=== PATIENT | male | born 1945 | race Caucasian/White ===

== ENCOUNTER 2019-09-10 14:31 | Observation (INO) | payer MEDICARE, OTHER ==
[~2019-09-10] VITALS: Ht 180.3 cm; Wt 77.2 kg
[~2019-09-10 14:31] MED LIST: ASPIRIN E.C. 8181 M1 PO; DIABETA 2.5MG2.5 MG PO; GLUCOPHAGE500 MG/TAB PO; LIPITOR 10MG10 MG PO; MULTIPLE VITAMI1 CAP PO; OMEGA-3 FISH1200 MG PO; ZYLOPRIM100 MG PO; [UNRECOGNIZED DRUG - OTHER] PO
[2019-09-10 15:06] LABS: BASO # 0.1 (0.0-0.2); BASO % 1.2 % (0.0-2.0); EOS # 0.3 (0.0-0.7); EOS % 5.2 % (0-4.0); GRAN # 2.8 (1.4-6.5); GRAN % 46.9 % (42.2-75.2); HEMATOCRIT 43.5 % (42.0-52.0); HEMOGLOBIN 14.2 g/dl (13.5-18.0); MEAN CELL VOLUME 89 fl (80.0-100.0); MEAN CORPUSCULAR HEMOGLOBIN 29 pg (27.0-31.0); MEAN CORPUSCULAR HGB CONC 33 g/dl (33.0-37.0); MEAN PLATELET VOLUME 10.4 fl (7.4-10.4); MONO # 0.7 (0.1-0.6); MONO % 12.2 % (1.7-9.3); PLATELET COUNT 279 K/mm3 (130-400); RED BLOOD COUNT 4.88 M/mm3 (4.20-5.60); REDCELL DISTRIBUTION WIDTH-CV 13.7 % (11.5-14.5)
[2019-09-10] MEDS ORDERED: GLUCOPHAGE500 MG/TAB PO (15:08)
[2019-09-10 15:11] LABS: PROTHROMBIN TIME 11.8 SECONDS (9.7-12.8)
[2019-09-10 15:18] LABS: ALANINE AMINOTRANSFERASE 23 U/L (21-72); ALBUMIN 4.7 gm/dL (3.5-5.0); ALKALINE PHOSPHATASE 86 U/L (50-136); ANION GAP 11 mmol/L (7-16); AST,SGOT 25 U/L (15-37); BILIRUBIN,TOTAL 0.8 mg/dL (0.0-1.0); BLOOD UREA NITROGEN 21 mg/dL (9-20); CALCIUM 9.9 mg/dL (8.4-10.2); CARBON DIOXIDE 27 mmol/L (22-30); CHLORIDE 103 mmol/L (98-107); CREATININE, serum 1.24 (0.66-1.25); GLUCOSE 131 mg/dL (74-106); POTASSIUM 4.6 mmol/L (3.4-5.0); SODIUM 142 mmol/L (137-145); TOTAL PROTEIN 8.1 gm/dL (6.4-8.2)
[2019-09-10 15:22] LABS: C-REACTIVE PROTEIN < 0.5 mg/dL (0.0-0.9)
[2019-09-10 20:27] VITALS: BP 160/69; PULSE 74; TEMP 97.6
--- NOTE | 2019-09-10 20:30 | NUR ---
Received report from MARIBEL Lyons at 2009. Pt arrived to medical unit room 319 via at 2019.
--- NOTE | 2019-09-10 21:00 | NUR ---
Assessment complete. at bedside. Alert and oriented. Denies any pain, weakness, discomfort, dizziness or headache at this time. Pt laying comfortably in bed. NKA. Med rec completed. INT to LAC intact, flushed, dressing CDI. Call light within reach.
[2019-09-10 23:19] LABS: MAGNESIUM 1.8 mg/dL (1.6-2.3); PHOSPHOROUS 3.1 mg/dL (2.5-4.5)
[2019-09-10] MEDS ORDERED: LIPITOR20 MG PO (23:40)
[2019-09-11] VITALS (7 sets, daily range): BP systolic 143–160; BP diastolic 57–82; PULSE 78–88; TEMP 97.7–99
[2019-09-11 03:24] LABS: COLLECTION METHOD CLEAN CATCH
[2019-09-11 03:30] LABS: PH 5 (5-8); SQUAMOUS EPITHELIAL None Seen /hpf; URINE APPEARANCE Clear; URINE BACTERIA None Seen /hpf; URINE BILIRUBIN Negative (NEGATIVE); URINE BLOOD Negative (NEGATIVE); URINE COLOR Yellow; URINE GLUCOSE Negative (NEGATIVE); URINE KETONE Negative (NEGATIVE); URINE LEUKOCYTE ESTERASE Negative (NEGATIVE); URINE NITRATE Negative (NEGATIVE); URINE PROTEIN(semi-quant) Negative (NEGATIVE); URINE RBC 0-2 /hpf; URINE UROBILINOGEN Negative (NEGATIVE)
--- NOTE | 2019-09-11 05:37 | NUR ---
Pt slept throught the night, no complaints made. remained at bedside. Pt understands POC. Call light within reach.
[2019-09-11 06:43] LABS: BASO # 0.1 (0.0-0.2); BASO % 1.1 % (0.0-2.0); EOS # 0.4 (0.0-0.7); EOS % 7.7 % (0-4.0); GRAN # 3.2 (1.4-6.5); GRAN % 55.3 % (42.2-75.2); HEMATOCRIT 39.7 % (42.0-52.0); HEMOGLOBIN 13.1 g/dl (13.5-18.0); LYMPH # 1.4 (1.2-3.4); LYMPH % 24.3 % (20.0-51.0); MEAN CELL VOLUME 88 fl (80.0-100.0); MEAN CORPUSCULAR HEMOGLOBIN 29 pg (27.0-31.0); MEAN CORPUSCULAR HGB CONC 33 g/dl (33.0-37.0); MEAN PLATELET VOLUME 10.3 fl (7.4-10.4); MONO # 0.7 (0.1-0.6); MONO % 11.4 % (1.7-9.3); PLATELET COUNT 232 K/mm3 (130-400); RED BLOOD COUNT 4.51 M/mm3 (4.20-5.60); REDCELL DISTRIBUTION WIDTH-CV 13.7 % (11.5-14.5)
[2019-09-11 06:58] LABS: ALBUMIN 3.7 gm/dL (3.5-5.0); CHOLESTEROL RISK RATIO 3.7; CREATININE, serum 1.05 (0.66-1.25); POTASSIUM 4.1 mmol/L (3.4-5.0); TOTAL PROTEIN 6.6 gm/dL (6.4-8.2)
--- NOTE | 2019-09-11 07:07 | NUR ---
Report given to MARIBEL Duong and MARIBEL Trujillo.
[2019-09-11 07:26] LABS: THYROID STIMULATING HORMONE 2.51 uIU/mL (0.465-4.680)
--- NOTE | 2019-09-11 09:12 | NUR ---
IVF's stopped and disconnected to prepare pt for MRI. Assessment complete. Pt resting in bed, A&O x 4. Physical assessment unremarkable. Pt denies pain at this time. IV site without s/s of complications. POC reviewed with pt and pt's family. No further needs reported. Call light in reach.
--- NOTE | 2019-09-11 09:22 | NUR ---
Initial visit; Patient thanked [employer] [facility] for looking in on him and offering God's blessings.
--- NOTE | 2019-09-11 10:10 | NUR ---
Pt back to room following testing, expressing hunger. Dietary service called for meal tray. IVF's discontinued. No further needs reported. Call light in reach.
[2019-09-11] MEDS ORDERED: ASPI325T6 PO (12:58)
--- NOTE | 2019-09-11 16:05 | NUR ---
POORNIMA met with the patient and his , Naima to complete intial intake. The patient lives with Naima [place] the [address] ([place] The patient does not use DME and reports independence with ADLs. The patient's PCP is Dr. Ramonita Gifford and patient receives medications from [facility] with no difficulties. The patient does not have advanced directives in the EMR but reports they are completed and designate his daughter, Kirsten. director of housing and energy services will continue to follow to ensure a safe discharge.
--- NOTE | 2019-09-11 17:30 | NUR ---
Pt resting in bed with at bedside, denies pain or needs, verbalizes understanding of POC to stay over night awaiting test results. Call light in reach.
--- NOTE | 2019-09-11 20:00 | NUR ---
Receoved report from MARIBEL Duong. Assessment complete. Alert and oriented. Denies any pain, weakness, numbness, headache orany discomfort. Meds administered as ordered. INT to LAC intact, flushed well, dressing CDI. Tele monitor in place, leads checked. Call light within reach.
[2019-09-12 04:53] VITALS: BP 140/79; PULSE 81; TEMP 97.8
--- NOTE | 2019-09-12 05:10 | NUR ---
Uneventful during this shift. Call light within reach. No complaints made.
[2019-09-12 06:27] LABS: BASO % 0.7 % (0.0-2.0); EOS # 0.3 (0.0-0.7); EOS % 4.4 % (0-4.0); GRAN # 3.4 (1.4-6.5); HEMATOCRIT 40.1 % (42.0-52.0); HEMOGLOBIN 13.5 g/dl (13.5-18.0); LYMPH # 1.3 (1.2-3.4); LYMPH % 23.3 % (20.0-51.0); MEAN CELL VOLUME 87 fl (80.0-100.0); MEAN CORPUSCULAR HEMOGLOBIN 29 pg (27.0-31.0); MEAN CORPUSCULAR HGB CONC 34 g/dl (33.0-37.0); MEAN PLATELET VOLUME 10.4 fl (7.4-10.4); MONO # 0.6 (0.1-0.6); MONO % 11.4 % (1.7-9.3); PLATELET COUNT 251 K/mm3 (130-400); RED BLOOD COUNT 4.61 M/mm3 (4.20-5.60); REDCELL DISTRIBUTION WIDTH-CV 13.9 % (11.5-14.5)
[2019-09-12 06:54] LABS: CALCIUM 9.3 mg/dL (8.4-10.2); CREATININE, serum 1.05 (0.66-1.25); POTASSIUM 4.5 mmol/L (3.4-5.0)
[2019-09-12 07:12] VITALS: BP 138/80; PULSE 80; TEMP 98.2
--- NOTE | 2019-09-12 07:28 | NUR ---
Report given to MARIBEL Malik.
--- NOTE | 2019-09-12 10:40 | NUR ---
PATIENT DC TO HOME @ 1038 VIA PRIVATE VEHICLE ACCOMPANIED BY . AMBULATED OFF UNIT WITH NO CONCERNS OR COMPLAINTS. PRINTED DC TO INCLUDE F/U, MEDICATIONS REVIEWED WITH PATIENT AND . ALL QUESTIONS AND CONCERNS ADRESSED AT END OF REVIEW.
== END 2019-09-12 10:38 | disposition home or self-care (01) ==
LOC: COL.ER 14:31 → MEDICAL 19:41
PROVIDERS: Family Medicine; Nurse Practitioner Family; Physician Assistant; ADMIT Student in an Organized Health Care Education/Training Program
DX: I63.9 Cerebral infarction, unspecified (principal); R26.0 Ataxic gait; Z66 Do not resuscitate; R41.89 Other symptoms and signs involving cognitive functions and awareness; E78.5 Hyperlipidemia, unspecified; E11.9 Type 2 diabetes mellitus without complications; Z79.84 Long term (current) use of oral hypoglycemic drugs; Z79.899 Other long term (current) drug therapy; Z79.82 Long term (current) use of aspirin; M10.9 Gout, unspecified; F32.9 Major depressive disorder, single episode, unspecified; R06.83 Snoring
CPT/HCPCS: A9585; G0378; J1650; J1815; J7030; Q9967